=== PATIENT | female | born 1975 | race Caucasian/White ===

== ENCOUNTER → 2017-11-05 | Outpatient (CLI) | payer BC ==
--- NOTE | 2017-11-06 08:45 | RAD ---
EXAM DESCRIPTION: Abdomen Series CLINICAL HISTORY: UNSPECIFIED RENAL COLIC COMPARISON: None FINDINGS: Single frontal view the thorax with 2 views of the abdomen pelvis. No acute cardiopulmonary disease process is demonstrated. Calcified granuloma right midlung. Normal bowel gas pattern is present. Remote surgical changes suspected involving the rectum. Multiple surgical clips in the pelvis. Right upper quadrant surgical clips. No organomegaly is demonstrated. No pathologic calcification. Osseous structures maintained. IMPRESSION: Negative for acute cardiopulmonary disease. No radiographic evidence for acute abdominal or pelvic disease. Electronically signed by: Shoaib Lowe MD 11/06/2017 8:44 AM [employer]
== END | disposition home or self-care (01) ==
LOC: LAB.O 11:36
PROVIDERS: ATTEND Nurse Practitioner Family
DX: E06.3 Autoimmune thyroiditis (principal); N23 Unspecified renal colic

== ENCOUNTER → 2018-01-28 | Outpatient (CLI) | payer BC | LOC: LAB.O 07:42 | PROVIDERS: ATTEND Nurse Practitioner Family | DX: I10 Essential (primary) hypertension (principal); E03.9 Hypothyroidism, unspecified ==

== ENCOUNTER 2018-06-09 17:54 | Emergency (ER) | payer BC ==
[2018-06-09] MEDS ORDERED: SODIUM CHLORIDE 0.9% 1000ML 1,000 ML IVS ONE (18:46)
[2018-06-09] MEDS ORDERED: ONDANSETRON INJ 4 MG/2 ML VIAL IV ONE (18:46)
[2018-06-09] MEDS ORDERED: KETOROLAC TROMETHAMINE INJ 30 MG/ML VIAL IV ONE (18:46)
[2018-06-09] MEDS ORDERED: SODIUM CHLORIDE 0.9% (FLUSH) 10 ML SYG IV PRN (18:46)
[2018-06-09] MEDS ORDERED: fentaNYL CITRATE INJ 50 MCG/ML AMP IV ONE (18:48)
--- NOTE | 2018-06-09 18:59 | ED.PDOC ---
History of Present Illness - General Information Source: patient Exam Limitations: no limitations - History of Present Illness Initial Comments: PT REPORTS 2 DAY HISTORY OF PROGRESSIVELY WORSENING ABDOMINAL PAIN ASSOCIATED WITH NAUSEA. PT REPORTS RECENT CONSTIPATION WHICH SHE TOOK EXLAX FOR AND HAS HAD SEVERAL BOWEL MOVEMENTS SINCE. PT HAS A HISTORY OF DIVERTICULITIS S/P SIGMOIDECTOMY. PT DENIES FEVER, VOMITING, OR CHILLS. Abdominal Pain Onset Location: RUQ, generalized abdomen Quality: moderate, dull, sharpness, steady Improving Factors: nothing Worsening Factors: nothing Associated Symptoms: nausea/vomiting <Marlo Mir - Last Filed: 06/09/18 18:57> <Arun Liu - Last Filed: 06/09/18 21:44> - General Chief Complaint: Abdominal Pain Stated Complaint: ABDOMINAL PAIN, NAUSEA Time Seen by Provider: 06/09/18 18:22 Review of Systems - Review of Systems Constitutional: Denies: chills, fever EENTM: Denies: ear pain, nose congestion Respiratory: Denies: cough, short of breath Cardiology: Denies: chest pain, palpitations Gastrointestinal/Abdominal: States: see HPI, abdominal pain, constipation, nausea. Denies: vomiting Genitourinary: Denies: dysuria, frequency Musculoskeletal: Denies: joint pain, joint swelling Skin: Denies: dryness, lesions Neurological: Denies: headache, numbness <Marlo Mir - Last Filed: 06/09/18 18:57> - Review of Systems Genitourinary: States: other - RECENT CONSTIPATION <Arun Liu - Last Filed: 06/09/18 21:44> Past Medical History (General) - Patient Medical History Hx Seizures: No Hx Stroke: No Hx Dementia: No Hx Asthma: No Hx of COPD: No Hx Cardiac Disorders: No Hx Congestive Heart Failure: No Hx Pacemaker: No Hx Hypertension: Yes Hx Thyroid Disease: Yes Hx Diabetes: No Hx Gastroesophageal Reflux: No Hx Renal Disease: No Hx Cancer: No Hx of HIV: No Hx Hepatitis C: No Hx MRSA: No Surgical History: appendectomy, other - SIGMOIDECTOMY, COLOSTOMY AND REVERSAL - Vaccination History Hx Tetanus, Diphtheria Vaccination: No Hx Influenza Vaccination: No Hx Pneumococcal Vaccination: No - Social History Hx Tobacco Use: Yes Cigarettes Packs Per Day: 1 Hx Alcohol Use: Yes Hx Substance Use: Yes - occasional marijuana use Hx Depression: Yes Feels Threatened In Home Enviroment: No Feels Threatened In a Relationship: No - Activities of Daily Living Long-Term/Assisted Living (if applicable):: [facility] Agency (if applicable):: None - Female History Patient is a Female of Child Bearing Age (10 -59 yrs old): Yes Hx Last Menstrual Period: 05/16/17 Patient : No <Marlo Mir - Last Filed: 06/09/18 18:57> Family Medical History - Family History Grandparents Hx Family;Other: heart and kidney problems <Marlo Mir - Last Filed: 06/09/18 18:57> Physical Exam - Physical Exam General Appearance: Alert, Obese, Well Developed, Well Groomed, Well Hydrated, Other - APPEARS UNCOMFORTABLE Eyes, Ears, Nose, Throat Exam: normal ENT inspection Neck: full range of motion, supple Respiratory: lungs clear, normal breath sounds, no respiratory distress Cardiovascular/Chest: regular rate, rhythm, no murmur Gastrointestinal/Abdominal: soft, tenderness - DIFFUSE AND WORSE IN RUQ Extremity: non-tender, normal inspection, no pedal edema Neurologic: alert, normal mood/affect, oriented x 3 Skin Exam: normal color, warm/dry <Marlo Mir - Last Filed: 06/09/18 18:57> Progress - Progress Progress: 06/09/18 21:28 1900 CARE ASSUMED BY MYSELF. HAVE REVIEWED DOCUMENTATION, PE AND EXAMINED PT. AGREE WITH DOCUMENTATION, REVIEWED LAB AND CT. PT WITH DIFFUSE ABD TTP. HERNIA LLQ, MILD RUQ TTP, NO REDMOND'S BS NL. - EKG/XRAY/CT EKG: Sinus - RATE 79, NL AXIS, NL INTERVALS, , nonspecific ST T wave Chg - NAIP , NO OLD FOR COMPARISON <Arun Liu - Last Filed: 06/09/18 21:44> Departure <ClarkeOsmarpalomo Larkin - Last Filed: 06/09/18 18:57> - Departure ICD-10 Supporting Text: DDX: EARLY DIVERTICULITIS, BILIARY COLIC, GASTROENTERITIS, IBS. Time of Disposition: 21:32 <Arun Liu - Last Filed: 06/09/18 21:44> - Departure Clinical Impression: Abdominal pain Qualifiers: Abdominal location: generalized Qualified Code(s): R10.84 - Generalized abdominal pain Disposition: Discharge to Home or Self Care Condition: Good Departure Forms: ED Discharge - Pt. Copy, Patient Portal Self Enrollment Instructions: DI for Abdominal Pain-Adult, Diverticulitis Referrals: FAVIAN HDEZ IV, PHARMACY DATA ANALYST [Primary Care Provider] - 1-2 Weeks Prescriptions: Acetaminophen W/ Codeine [Tylenol W/ CODEINE #3] 1 ea PO Q6HR PRN #24 PRN Reason: Pain Dicyclomine HCl [Bentyl] 20 mg PO Q6HR PRN #30 tab PRN Reason: Pain Ciprofloxacin [Cipro] 500 mg PO BID #20 ml metroNIDAZOLE [Flagyl] 500 mg PO Q8H #30 tab Ondansetron HCl [Zofran] 4 mg PO TID PRN #20 tab PRN Reason: Nausea Home Medications: Ambulatory Orders Acetamin W/Cod #3 Tab [Tylenol #3 Tab] 1 ea PO Q4-6H PRN #20 tab 08/09/14 Acetaminophen W/ Codeine [Tylenol W/ CODEINE #3] 1 ea PO Q6HR PRN #24 06/09/18 Ciprofloxacin [Cipro] 500 mg PO BID #20 ml 06/09/18 Dicyclomine HCl [Bentyl] 20 mg PO Q6HR PRN #30 tab 06/09/18 Ondansetron HCl [Zofran] 4 mg PO TID PRN #20 tab 06/09/18 metroNIDAZOLE [Flagyl] 500 mg PO Q8H #30 tab 06/09/18
[2018-06-09 20:09] VITALS: O2SAT 97
--- NOTE | 2018-06-09 20:13 | CT ---
PROCEDURE: Abdomen/Pelvis w/Contrast HISTORY: diffuse abd pain, nausea Indication: Same as above Comparison: None . Technique: CT of the abdomen and pelvis was done with intravenous contrast. Images were obtained from the lung base to the level of the pubic symphysis in axial plane, followed by orthogonal sagittal and coronal reconstruction. Oral contrast was not given for the study. The patient was injected with radiographic contrast intravenously, without any documented immediate adverse reactions. This exam was performed according to our departmental dose-optimization program, which includes automated exposure control, adjustment of the mA and/or KV according to the patient's size and/or use of iterative reconstruction technique. FINDINGS: Images through the lung bases do not show any focal infiltrates or pleural effusions. There is presence of a widemouthed left anterior pelvic wall ventral hernia defect containing intraperitoneal fat and nonobstructed loops of small bowel. Few clustered microcalcifications are seen in the region of the head/uncinate process of the pancreas and may represent changes of chronic pancreatitis. There is no pancreatic atrophy. Surgical kate are seen in the right lateral margin of the liver suggestive of prior surgery. There is calcification of the right renal capsule which may be as a result of prior calcified perinephric hematoma or may be as a result of prior infection. Multiple tiny nonobstructive bilateral renal calculi are seen. There is no hydroureteronephrosis on either side The gallbladder, spleen and the bilateral adrenal glands appear unremarkable. The urinary bladder is unremarkable . There is no CT evidence of pericecal inflammatory change or ileocecal mesenteric adenitis. The appendix is not visualized The ileocecal junction appears unremarkable. There is no CT evidence of acute colonic diverticulitis or colitis or large bowel obstruction. The splenic and portal veins are of normal caliber, without any filling defects. There is no pathological lymphadenopathy in the retroperitoneum or in the pelvic region. There is no evidence of free fluid or free air in the abdomen or the pelvic region. There is no clinically significant abdominal aortic aneurysm. There is also a tiny fat-containing periumbilical ventral hernia defect. An anteverted uterus is seen. There is a 3.9 x 3.0 cm benign cyst in the right ovary, and can be followed up in 6-12 weeks. Multiple surgical kate are seen in the pelvis The visualized lumbar spine is unremarkable . The paravertebral soft tissues are unremarkable. The remainder of the pelvic structures are unremarkable. IMPRESSION: There is presence of a widemouthed left anterior pelvic wall ventral hernia defect containing intraperitoneal fat and nonobstructed loops of small bowel. Few clustered microcalcifications are seen in the region of the head/uncinate process of the pancreas and may represent changes of chronic pancreatitis. There is no pancreatic atrophy. Surgical kate are seen in the right lateral margin of the liver suggestive of prior surgery. There is calcification of the right renal capsule which may be as a result of prior calcified perinephric hematoma or may be as a result of prior infection. Multiple tiny nonobstructive bilateral renal calculi are seen. There is a 3.9 x 3.0 cm benign cyst in the right ovary, and can be followed up in 6-12 weeks. Electronically signed by: Aniket Morgan MD 06/09/2018 8:12 PM CDT Workstation: [id number]
[2018-06-09 21:57] VITALS: BP 157/99; TEMP 98.2
== END 2018-06-09 21:59 | disposition home or self-care (01) ==
LOC: ER 17:54
DX: R10.84 Generalized abdominal pain (principal); R11.2 Nausea with vomiting, unspecified; K43.9 Ventral hernia without obstruction or gangrene; N83.201 Unspecified ovarian cyst, right side; N28.1 Cyst of kidney, acquired; I10 Essential (primary) hypertension; E07.9 Disorder of thyroid, unspecified; F32.9 Major depressive disorder, single episode, unspecified; F17.210 Nicotine dependence, cigarettes, uncomplicated; Z90.49 Acquired absence of other specified parts of digestive tract; Z98.890 Other specified postprocedural states
CPT/HCPCS: 74177; 80048; 80076; 81001; 83690; 84703; 85025; 93005; J1885; J2405; J3010; J7030

== ENCOUNTER → 2018-07-09 | Outpatient (CLI) | payer BC ==
--- NOTE | 2018-07-09 14:47 | US ---
EXAM DESCRIPTION: Pelvis Transvaginal CLINICAL HISTORY: 42 years Female, ABNORMAL FINGDINGS ON ABDOMINAL REGION COMPARISON: CT abdomen and pelvis dated 06/09/2018. TECHNIQUE: Multiple static transverse and longitudinal sonographic images of the pelvis were obtained transvaginally. FINDINGS: The uterus is anteverted in orientation. It measures 9.2 x 4.5 x 5.4 cm. 2.2 x 3.4 cm fibroid is noted in the anterior uterine body. 1.4 x 1.3 x 1.7 cm fibroid is noted in the fundus. The endometrial stripe measures 1 cm in thickness. Nabothian cysts are identified in the cervix. The right ovary measures 5.3 x 4.6 x 3.6 cm. There is a 3.6 x 3.4 x 2.7 cm hypoechoic lesion with internal echoes most likely representing a hemorrhagic cyst. The left ovary is surgically absent. No evidence of free fluid. IMPRESSION: 1. At least 2 fibroids are identified in the uterus as detailed above. 2. 3.6 x 3.4 x 2.7 cm hemorrhagic cyst is noted in the right ovary. This was seen on prior CT abdomen and pelvis dated 06/09/2018. Electronically signed by: Rhianna Santiago MD 07/09/2018 2:45 PM CDT
== END ==
LOC: US 11:09
PROVIDERS: ATTEND Nurse Practitioner Family
DX: R93.5 Abnormal findings on diagnostic imaging of other abdominal regions, including retroperitoneum (principal); D25.9 Leiomyoma of uterus, unspecified; N83.292 Other ovarian cyst, left side

== ENCOUNTER → 2019-12-21 | Outpatient (CLI) | payer BC ==
--- NOTE | 2019-12-21 12:06 | CT ---
EXAM DESCRIPTION: Head w/wo Contrast CLINICAL HISTORY: HYPERTENSIVE RETINOPATHY COMPARISON: None available TECHNIQUE: CT brain is performed prior to and following IV administration of routine adult dose of nonionic iodinated IV contrast. FINDINGS: Ventricles and sulci are unremarkable on the precontrast images with normal flores-white matter differentiation. There is no hemorrhage or mass on the precontrast images. There are no white matter abnormalities detected. The calvarium is unremarkable. The visualized paranasal sinuses and the mastoids are negative for air-fluid levels. 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 After IV contrast, repeat scanning through the brain shows normal enhancement of intracranial vessels. No enhancing intracranial mass or pathologic brain parenchymal enhancement to suggest disruption of the blood brain barrier. IMPRESSION: No acute intracranial pathologic process. 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 This exam was performed according to our departmental dose-optimization program, which includes automated exposure control, adjustment of the mA and/or kV according to patient size and/or use of iterative reconstruction technique. Electronically signed by: Dylan Tee MD 12/21/2019 12:05 PM [facility]
== END ==
LOC: LAB.O 09:09
PROVIDERS: ATTEND Nurse Practitioner Family
DX: H35.032 Hypertensive retinopathy, left eye (principal); D16.4 Benign neoplasm of bones of skull and face

== ENCOUNTER 2020-03-13 15:47 | Observation (INO) | payer BC ==
[2020-03-13] MEDS ORDERED: NITROGLYCERIN 0.4 MG/HR PATCH TOP ONE (16:10)
[2020-03-13] MEDS ORDERED: SODIUM CHLORIDE 0.9% (FLUSH) 10 ML SYG IV PRN ×2 (16:10→20:55)
[2020-03-13] MEDS ORDERED: ONDANSETRON INJ 4 MG/2 ML VIAL IV ONE (16:10)
[2020-03-13] MEDS ORDERED: ASPIRIN TABLET 325 MG TAB PO ONE (16:10)
--- NOTE | 2020-03-13 16:42 | RAD ---
EXAM DESCRIPTION: Chest,1 View CLINICAL HISTORY: Dyspnea COMPARISON: Chest radiograph dated February 26, 2019 TECHNIQUE: One view radiograph of the chest FINDINGS: Cardiac silhouette shows normal heart size. Pulmonary vascularity is within normal limits. Opacity in the left lung base may represent atelectasis versus infiltrate. Right lung shows no confluent infiltrates. Costophrenic angles are sharp. No pneumothorax. No acute osseous abnormality. IMPRESSION: Opacity in the left lung base may represent atelectasis versus infiltrate. Electronically signed by: Morgan Mendosa MD 03/13/2020 4:40 PM CDT
--- NOTE | 2020-03-13 18:25 | ED.PDOC ---
History of Present Illness - General Chief Complaint: Chest Pain/NJ Stated Complaint: chest tightness,shortness of breath Time Seen by Provider: 03/13/20 16:09 Source: patient, RN notes reviewed, Vital Signs reviewed Exam Limitations: no limitations - History of Present Illness Initial Comments: Patient is 44-year-old obese white female who presents with complaints of chest tightness and shortness of breath. This started a few days ago and has been worsening since that time. Her shortness of breath is worse when she lies down and better when she sits up. The tightness is squeezing in nature, it is moderate in intensity, it radiates to the left shoulder. Nothing seems to make the tightness better. Her shortness of breath and tightness are worse with exertion. They are also worse when she becomes anxious. Patient denies any dizziness, headache, chest pain, nausea, vomiting, diarrhea. Timing/Duration: other - 2 to 3 days Severity: moderate Location: central Activities at Onset: activity, emotional stress Prior Chest Pain/Cardiac Workup: no prior chest pain Improving Factors: rest Worsening Factors: movement Nitro Today/Relief: no nitro taken today Aspirin Treatment Today: no aspirin today Associated Symptoms: chest pain, shortness of breath Allergies/Adverse Reactions: Allergies Morphine Allergy (Verified 06/09/18 18:24) Home Medications: Ambulatory Orders Thyroid [Mushroom Grower Thyroid 90] 300 mg PO DAILY 03/13/20 Review of Systems - Review of Systems Constitutional: States: no symptoms reported, see HPI. Denies: chills, fever, malaise EENTM: States: no symptoms reported. Denies: blurred vision, double vision, throat pain, throat swelling Respiratory: States: see HPI, orthopnea, short of breath. Denies: cough, stridor, wheezing Cardiology: States: see HPI. Denies: palpitations, syncope Gastrointestinal/Abdominal: States: no symptoms reported. Denies: abdominal pain, diarrhea, nausea, vomiting Genitourinary: States: no symptoms reported Musculoskeletal: States: no symptoms reported Skin: States: no symptoms reported Endocrine: States: no symptoms reported Hematologic/Lymphatic: States: no symptoms reported All other Systems: Reviewed and Negative Past Medical History (General) - Patient Medical History Hx Seizures: No Hx Stroke: No Hx Dementia: No Hx Asthma: No Hx of COPD: No Hx Cardiac Disorders: No Hx Congestive Heart Failure: No Hx Pacemaker: No Hx Hypertension: Yes Hx Thyroid Disease: Yes Hx Diabetes: No Hx Gastroesophageal Reflux: No Hx Renal Disease: No Hx Cancer: No Hx of HIV: No Hx Hepatitis C: No Hx MRSA: No - Vaccination History Hx Tetanus, Diphtheria Vaccination: No Hx Influenza Vaccination: No Hx Pneumococcal Vaccination: No - Social History Hx Tobacco Use: Yes Hx Alcohol Use: Yes Hx Substance Use: Yes - occasional marijuana use Hx Depression: Yes - Female History Hx Last Menstrual Period: 05/16/17 Patient : No Family Medical History - Family History Grandparents Family History: Unknown Living Status: Unknown Hx Family;Other: heart and kidney problems Physical Exam - Physical Exam General Appearance: Alert, Anxious, Obvious distress, Obese, Well Developed, Well Groomed, Well Hydrated, Well Nourished Eyes, Ears, Nose, Throat Exam: PERRL/EOMI, normal ENT inspection, pharynx normal Neck: non-tender, full range of motion, supple Respiratory: chest non-tender, lungs clear, normal breath sounds, no respiratory distress Cardiovascular/Chest: normal peripheral pulses, regular rate, rhythm, no edema, no gallop, no JVD, no murmur Gastrointestinal/Abdominal: normal bowel sounds, non tender, soft, no organomegaly Extremity: normal range of motion, non-tender, normal inspection Neurologic: hospice consultant II-XII nml as tested, no motor/sensory deficits, alert, normal mood/affect - Except for anxiety., oriented x 3 Skin Exam: normal color, warm/dry Lymphatic: no adenopathy Progress - Progress Progress: Differential diagnosis: ACS, pneumonia, viral URI, PE among others 03/13/20 18:36 Awaiting the results of the second troponin. Patient was discussed with Moriah Abdi NP who Has accepted for admission once the second troponin is negative. 03/13/20 19:28 Second troponin is finally returned and is negative. Plan on admission to the hospital. Consider pneumonia unlikely as she has no white count and no hypoxia or fever. Though she has a mildly low O2 sat intermittently, I suspect this is due to her 1 pack/day habit of smoking. Plan on admission for further evaluation.I have discussed this with the patient and she voices understanding and agreement. I have discussed this with Moriah Abdi and she has accepted the patient for admission James Espana M.D. #[id number] - Results/Orders Results/Orders: EKG performed 13 Mar 2020 at 1552 hrs.: Normal sinus rhythm at 94 bpm, possible anterior infarct, age indeterminate, no active ischemia patterns, abnormal EKG. No comparison EKG available. EXAM DESCRIPTION: Chest,1 View CLINICAL HISTORY: Dyspnea COMPARISON: Chest radiograph dated February 26, 2019 TECHNIQUE: One view radiograph of the chest FINDINGS: Cardiac silhouette shows normal heart size. Pulmonary vascularity is within normal limits. Opacity in the left lung base may represent atelectasis versus infiltrate. Right lung shows no confluent infiltrates. Costophrenic angles are sharp. No pneumothorax. No acute osseous abnormality. IMPRESSION: Opacity in the left lung base may represent atelectasis versus infiltrate. Electronically signed by: Morgan Mendosa MD 03/13/2020 4:40 PM CDT 03/13/20 16:10 Sodium Chloride 0.9% (Flush) [Saline Flush Syringe] 10 ml IV PRN PRN EKG Stat Pulse Ox Stat Laboratory Results - last 24 hr 03/13/20 03/13/20 16:25 18:25 WBC 10.1 RBC 5.28 Hgb 16.0 Hct 47.6 H MCV 90.1 MCH 30.3 MCHC 33.6 RDW 14.3 Plt Count 227 MPV 9.3 Absolute Neuts (auto) 6.30 Absolute Lymphs (auto) 2.50 Absolute Monos (auto) 0.70 Absolute Eos (auto) 0.20 Absolute Basos (auto) 0.30 H Neutrophils % 62.4 Lymphocytes % 25.2 Monocytes % 7.3 Eosinophils % 2.4 Basophils % 2.7 H PT 9.4 INR < 1.00 PTT (SP) 23.1 Sodium 138 Potassium 3.8 Chloride 102 Carbon Dioxide 26 Anion Gap 13.8 BUN 18 Creatinine 0.76 BUN/Creatinine Ratio 23.7 H Random Glucose 122 H Serum Osmolality 278.9 Calcium 9.2 Magnesium 1.8 Creatine Kinase 57 CK-MB (CK-2) 2.0 CK-MB (CK-2) % Not Reportable Troponin I < 0.02 < 0.02 B-Natriuretic Peptide 79.2 Vital Signs 03/13/20 03/13/20 03/13/20 15:58 16:15 16:18 Temperature 98.7 F Pulse Rate [ 93 H 73 Left Brachial] Respiratory 20 Rate Blood Pressure 171/115 [Left Arm] O2 Sat by Pulse 96 96 Oximetry 03/13/20 03/13/20 03/13/20 16:47 17:00 18:00 Temperature Pulse Rate [ 88 90 90 Left Brachial] Respiratory 20 20 20 Rate Blood Pressure 175/110 157/99 162/94 [Left Arm] O2 Sat by Pulse 98 94 L 94 L Oximetry 03/13/20 19:00 Temperature Pulse Rate [ 94 H Left Brachial] Respiratory 16 Rate Blood Pressure 162/116 [Left Arm] O2 Sat by Pulse 94 L Oximetry Departure - Departure Clinical Impression: Noncompliance with medication regimen, Accelerated hypertension Chest pain Qualifiers: Chest pain type: unspecified Qualified Code(s): R07.9 - Chest pain, unspecified Dyspnea Qualifiers: Dyspnea type: shortness of breath Qualified Code(s): R06.02 - Shortness of br eath; R06.00 - Dyspnea, unspecified; R06.01 - Orthopnea Time of Disposition: 19:33 Disposition: Admit Patient Condition: Good Departure Forms: ED Discharge - Pt. Copy, Patient Portal Self Enrollment Instructions: DI for Chest Pain Referrals: FAVIAN HDEZ IV DENTAL OFFICER [Primary Care Provider] - 1-2 Weeks Home Medications: Ambulatory Orders Thyroid [Mushroom Grower Thyroid 90] 300 mg PO DAILY 03/13/20 Decision To Admit - Decistion To Admit Decision to Admit Date: 03/13/20 Decision to Admit Time: 16:45
[2020-03-13] MEDS ORDERED: MORPHINE SULFATE INJ 10 MG/ML VIAL IV PRN (20:55)
[2020-03-13] MEDS ORDERED: ACETAMINOPHEN 325 MG TAB PO PRN (20:55)
[2020-03-13] MEDS ORDERED: NITROGLYCERIN 0.4 MG 25 EA TAB SL PRN (20:55)
[2020-03-13] MEDS ORDERED: IV SET AND CAP CHANGE INJ INJ SCH (21:00)
[2020-03-13] MEDS ORDERED: ENOXAPARIN SODIUM 40 MG/0.4 ML SYG SUBCU SCH (21:01)
[2020-03-13] MEDS: SODIUM CHLORIDE 0.9% (FLUSH) 10 ML SYG IV SCH (21:14)
[2020-03-13] MEDS ORDERED: PANTOPRAZOLE SODIUM IV 40 MG VIAL ONE (21:15)
[2020-03-13] MEDS: METOPROLOL TARTRATE 25 MG TAB PO SCH (21:18)
[2020-03-13] MEDS ORDERED: diphenhydrAMINE HCL 25 MG CAP PO PRN (21:31)
[2020-03-13] MEDS: NICOTINE PATCH 14 MG TD SCH (21:55)
[2020-03-14 00:07] VITALS: TEMP 98
[2020-03-14] MEDS ORDERED: PANTOPRAZOLE SODIUM TAB 40 MG PO SCH (06:30)
[2020-03-14 08:50] VITALS: BP 142/88; O2SAT 95
[2020-03-14] MEDS ORDERED: THYROID 300 MG PO SCH (09:00)
[2020-03-14] MEDS ORDERED: ASPIRIN TABLET 325 MG TAB PO SCH (09:00)
[2020-03-14] MEDS: METOPROLOL TARTRATE 25 MG TAB PO SCH (09:31)
[2020-03-14] MEDS: SODIUM CHLORIDE 0.9% (FLUSH) 10 ML SYG IV SCH (09:31)
[2020-03-14] MEDS: NICOTINE PATCH 14 MG TD SCH (09:31)
--- NOTE | 2020-03-22 08:15 | SSS ---
SUPERVISING PHYSICIAN: Lee Ann Starks MD DISCHARGE DIAGNOSIS: 1. Chest pain, rule out acute coronary syndrome. Her cardiac enzymes have been negative and she had no changes on her EKG. 2. Hypertensive crisis with a history of hypertension, presently on no medications. 3. Gastroesophageal reflux disease. 4. Hypothyroidism. 5. Tobacco abuse. HISTORY OF PRESENT ILLNESS: This is a 44-year-old female patient who had had some chest tightness and shortness of breath for a couple of weeks. It was mostly at night prior to going to sleep. She occasionally had nausea with acid reflux and sometimes she actually even had some diaphoresis. Over the last week or so, it had worsened to the point that she could not lie down without being short of breath. It was better when she sat up. She does smoke about a pack of cigarettes daily. The chest pain felt like it was squeezing across her chest. It was moderate in intensity. It did radiate to her left shoulder as well as the left side of her neck. She came to the Emergency Room and her initial vital signs showed a temperature of 98.7, heart rate 93, blood pressure 171/115. Her lab studies showed unremarkable CBC. Coagulation studies were within normal limits. Electrolytes were within normal limits. Glucose was slightly high at 122. Her initial cardiac enzymes were negative. Followup troponin in 2 hours was also negative. She was given nitroglycerin. There were no changes on her EKG. She was also given some Zofran and I was called for hospital admission. PAST MEDICAL HISTORY: 1. Gastroesophageal reflux disease. 2. Hypothyroidism. 3. Hypertension. PAST SURGICAL HISTORY: Unknown. OUTPATIENT MEDICATIONS: 1. Synthroid. ALLERGIES: MORPHINE. SOCIAL HISTORY: She lives in [place] with her boyfriend. She smokes approximately one pack of cigarettes daily. She drinks alcohol on a social basis. She does use marijuana occasionally, but no other illicit drugs. REVIEW OF SYSTEMS: GENERAL: Negative for fever, fatigue or weight changes. HEENT: Negative for sinus symptoms, ear pain, vision changes or sore throat. RESPIRATORY: Positive for shortness of breath, orthopnea. Negative for wheezing, coughing. CARDIAC: As per history of present illness. GASTROINTESTINAL: Positive for acid reflux. Negative for nausea, vomiting, diarrhea. GENITOURINARY: Negative for hematuria, dysuria or polyuria. MUSCULOSKELETAL: Negative for arthralgias, myalgias. SKIN: Negative for lesions or rashes. NEUROLOGIC: Negative for headache, dizziness, weakness or seizures. PHYSICAL EXAMINATION: VITAL SIGNS: Temperature 98.0. Heart rate 82. Blood pressure 142/88. Respiratory rate 19. O2 saturation 95% on room air. GENERAL: This is a 44-year-old female who is sitting in her hospital bed. She is in no acute distress. HEENT: Normocephalic, atraumatic. Pupils are equal and reactive. Oropharynx is clear. NECK: Supple without mass. RESPIRATORY: Essentially clear to auscultation bilaterally. CHEST: There is equal rise and fall of the chest with inspiration and expiration. CARDIOVASCULAR: Regular rate and rhythm. GASTROINTESTINAL: Abdomen is soft, nondistended, nontender. Bowel sounds are positive. EXTREMITIES: No cyanosis, clubbing or edema. NEUROLOGIC: Awake, alert and oriented times three. Cranial nerves II-XII are grossly intact as tested. SKIN: Warm and dry. LABORATORY: Her followup WBC was within normal limits. Her chemistries were also unremarkable. Her serial cardiac enzymes were negative. Her triglycerides were 241. LDL 194, HDL 40. EKG showed no changes with normal sinus rhythm. Her echocardiogram showed 1) Normal left ventricular size and systolic function with no obvious regional wall motion abnormalities and an estimated ejection fraction of 55-60%. 2) Normal right ventricular size and function. 3) Trace mitral and tricuspid valve regurgitation. 4) Small posterior pericardial effusion with no obvious hemodynamic significance. DISCHARGE PLAN: The patient will be discharged home in stable condition. She is to resume her previous diet and increase her activity as tolerated. She is to resume her home medications. In addition to her home medications, I put her on metoprolol succinate 25 mg at bedtime. She is to followup with Homar Farrar on 03/19/20 at 2:30 PM. She is to return to the hospital or followup with Homar Farrar for any problems or complications. DISCHARGE MEDICATIONS: 1. Thyroid. 2. Tylenol Arthritis. 3. Tylenol PM. 4. Metoprolol succinate. #[id number] MTDD
== END 2020-03-14 12:20 | disposition home or self-care (01) ==
LOC: ER 15:47 → MS 20:24
PROVIDERS: ADMIT Nurse Practitioner Acute Care; ATTEND Nurse Practitioner Acute Care
DX: R07.89 Other chest pain (principal); I16.9 Hypertensive crisis, unspecified; I10 Essential (primary) hypertension; K21.9 Gastro-esophageal reflux disease without esophagitis; E03.9 Hypothyroidism, unspecified; F17.210 Nicotine dependence, cigarettes, uncomplicated; R06.02 Shortness of breath; R73.9 Hyperglycemia, unspecified; I34.0 Nonrheumatic mitral (valve) insufficiency; I36.1 Nonrheumatic tricuspid (valve) insufficiency; I31.3 Pericardial effusion (noninflammatory); Z91.14 Patient's other noncompliance with medication regimen; Z79.890 Hormone replacement therapy; Z88.6 Allergy status to analgesic agent
CPT/HCPCS: 96374; 96372; Q0163; J2405; J1650; 82553 ×3; 80053; 80061; 36415 ×4; 82550 ×3; 80048; 85025 ×2; 85730; 85610; 84484 ×4; 83880; 71045; 94760; 99285; 93306; 93005 ×3; G0378